=== PATIENT | female | born 1955 | race Two or more races ===

== ENCOUNTER → 2018-08-04 | Day surgery (SDC) | payer OTHER ==
[~2018-08-04] MED LIST: SYNTHROID50 MCG; ZANTAC300 MG; ZYRTEC10 M3
== END | disposition home or self-care (01) ==
LOC: ADM 08-02 14:30 → CIR.AMB 05:22
DX: S63.418A Traumatic rupture of collateral ligament of other finger at metacarpophalangeal and interphalangeal joint, initial encounter (principal)